=== PATIENT | female | born 1955 | race Caucasian/White ===

== ENCOUNTER 2019-09-21 19:04 | Emergency (ER) | payer OTHER ==
[2019-09-21] MEDS ORDERED: ONDANSETRON 4 MG/2 ML VIAL ONE (19:39)
[2019-09-21] MEDS ORDERED: FENTANYL CITR 100 MCG/2 ML ONE (19:44)
--- NOTE | 2019-09-21 20:20 | RAD REPORT ---
EXAM DESCRIPTION: RAD - Knee Left 3 View - 09/21/2019 7:54 pm CLINICAL HISTORY: PAIN COMPARISON: No comparisons FINDINGS: Comminuted proximal tibia fracture is present. There is a lateral tibial plateau fracture with a primary sagittal fracture plane. The tibial plateau is depressed 1 centimeter and laterally di splaced 1 centimeter. An additional oblique fracture plane extends from the lateral tibial plateau fr acture plane to the medial margin of the tibial metaphysis. There are multiple small fracture fragmen ts along this second main fracture line. No significant impaction, distraction or angulation along th is second fracture plane. Lipoma hemarthrosis is present. Proximal fibula is intact. Distal femur is intact. No patella abnormality.No foreign body in the soft tissues. IMPRESSION: Comminuted proximal tibia fracture as detailed.
--- NOTE | 2019-09-21 20:42 | EDPHYS ---
Physician Documentation [facility] Name: Alberta Johnson Age: 63 yrs Sex: Female : 1955 Arrival Date: 09/21/2019 Time: 19:08 Bed 30 Private MD: ED Physician Atul Shoemaker HPI: 09/21 19:43 This 63 yrs old Female presents to ER via Wheelchair with complaints of Left pm1 Knee Injury. 19:43 The patient presents with pain, that is acute, swelling. The complaints affect the left pm1 knee. Context: resulted from a mis-step, Patient missed the last step of stairs going down and landed on her left knee. No head injury, headache, LOC, neck pain. Patient without any other complaints than left knee pain, the patient is not able to bear weight, the patient is not able to ambulate, Problem is a result from a previous injury: No. Onset: The symptoms/episode began/occurred 20 minutes prior to arrival. Modifying factors: The symptoms are alleviated by nothing. the symptoms are aggravated by movement. Associated signs and symptoms: Pertinent negatives chest pain, shortness of breath. Treatment prior to arrival includes: no previous treatment. Severity of symptoms: in the emergency department the symptoms are unchanged. The patient has not experienced similar symptoms in the past. Patient from out of town. Historical: - Allergies: 19:14 No Known Allergies; aj1 - PMHx: 19:14 Bipolar disorder; aj1 - Immunization history:: Flu vaccine is not up to date. - Coronavirus screen:: The patient has NOT traveled to [place] in the past 14 days. - Social history:: Smoking status: Patient reports the use of cigarette tobacco products, smokes one-half pack cigarettes per day. - Ebola Screening: : Patient denies travel to an Ebola-affected area in the 21 days before illness onset. ROS: 19:43 Constitutional: Negative for fever, chills, and weight loss, Neck: Negative for injury, pm1 pain, and swelling, Cardiovascular: Negative for chest pain, palpitations, and edema, Respiratory: Negative for shortness of breath, cough, wheezing, and pleuritic chest pain, Abdomen/GI: Negative for abdominal pain, nausea, vomiting, diarrhea, and constipation, Back: Negative for injury and pain. 19:43 Skin: Negative for injury, rash, and discoloration, Neuro: Negative for headache, weakness, numbness, tingling, and seizure. 19:43 MS/extremity: Positive for deformity, pain, swelling, of the left knee, Negative for paresthesias, tenderness, tingling. Exam: 19:43 Constitutional: This is a well developed, well nourished patient who is awake, alert, pm1 and in no acute distress. Head/Face: Normocephalic, atraumatic. Neck: Trachea midline, no thyromegaly or masses palpated, and no cervical lymphadenopathy. Supple, full range of motion without nuchal rigidity, or vertebral point tenderness. No Meningismus. Chest/axilla: Normal chest wall appearance and motion. Nontender with no deformity. No lesions are appreciated. Cardiovascular: Regular rate and rhythm with a normal S1 and S2. No gallops, murmurs, or rubs. No pulse deficits. Respiratory: Lungs have equal breath sounds bilaterally, clear to auscultation and percussion. No rales, rhonchi or wheezes noted. No increased work of breathing, no retractions or nasal flaring. Abdomen/GI: Soft, non-tender, with normal bowel sounds. No distension or tympany. No guarding or rebound. No evidence of tenderness throughout. Back: No spinal tenderness. No costovertebral tenderness. Full range of motion. Skin: Warm, dry with normal turgor. Normal color with no rashes, no lesions, and no evidence of cellulitis. 19:43 Musculoskeletal/extremity: Extremities: grossly normal except: noted in the left knee: deformity, swelling, tenderness, There is no evidence of laceration, puncture, Pulses: noted to be 2+ in the right dorsalis pedis artery and left dorsalis pedis artery, the left foot Sensation intact. Compartment Syndrome exam of affected extremity: is normal. no numbness, no tingling, no sensation deficit, no palor, no weak pulses. 19:43 Neuro: Orientation: is normal, Motor: is normal, moves all fours. Vital Signs: 19:14 BP 153 / 80; Pulse 107; Resp 18; Temp 97.4; Pulse Ox 97% on R/A; Weight 67.59 kg (R); aj1 Height 5 ft. 10 in. (177.80 cm); Pain 8/10; 20:42 BP 177 / 96; Pulse 110; Resp 18; Pulse Ox 96% on R/A; mg2 21:31 BP 158 / 90; Pulse 112; Resp 18; Pulse Ox 100% ; Pain 7/10; mg2 19:14 Body Mass Index 21.38 (67.59 kg, 177.80 cm) aj1 Procedures: 20:51 Splinting: Splint applied to left leg using Orthoglass splint, applied by tech. nurse. pm1 Examined by me, post splint application: neurovascular intact, 2+ distal pulses palpable, brisk capillary refill noted, Patient tolerated well. MDM: 19:17 Patient medically screened. pm1 20:22 Physician consultation: Houston Galvez MD was called at 20:02, was contacted at 20:20, pm1 regarding consult, patient's condition, after a discussion of the case, a recommendation for transfer for higher level of care is made, Transfer to trauma center. 20:37 Data reviewed: vital signs. Data interpreted: Pulse oximetry: on room air is 97 %. pm1 Interpretation: normal. 20:37 Counseling: I had a detailed discussion with the patient and/or guardian regarding: the pm1 historical points, exam findings, and any diagnostic results supporting the discharge/admit diagnosis, radiology results, the need to transfer to another facility, for higher level of care. 09/21 20:41 Order name: CBC with Diff pm1 09/21 20:41 Order name: CMP pm1 09/21 20:41 Order name: PT-INR pm1 09/21 21:42 Order name: CBC with Automated Diff; Complete Time: 21:57 EDMS 09/21 21:42 Order name: Protime (+INR); Complete Time: 21:57 EDMS 09/21 21:42 Order name: Comprehensive Metabolic Panel; Complete Time: 21:57 EDMS 09/21 19:18 Order name: Knee Left 3 View XRAY pm1 09/21 21:40 Order name: RAD; Complete Time: 21:57 EDMS 09/21 19:28 Order name: IV Saline Lock; Complete Time: 19:34 pm1 09/21 20:05 Order name: Splint - Posterior Leg; Complete Time: 20:37 pm1 09/21 20:41 Order name: NPO; Complete Time: 20:42 pm1 Administered Medications: 19:43 Drug: fentaNYL (PF) 50 mcg Route: IVP; Site: right forearm; mg2 20:37 Follow up: Response: No adverse reaction; RASS: Alert and Calm (0) mg2 19:43 Drug: Zofran 4 mg Route: IVP; Site: right forearm; mg2 20:37 Follow up: Response: No adverse reaction mg2 20:52 Drug: morphine 4 mg Route: IVP; Site: right forearm; mg2 21:31 Follow up: Response: No adverse reaction; RASS: Alert and Calm (0) mg2 20:53 Drug: NS 0.9% 1000 ml Route: IV; Rate: 100 ml/hr; Site: right forearm; mg2 21:31 Follow up: IV Status: Infusion continued upon transfer mg2 21:31 Drug: morphine 4 mg Route: IVP; Site: right forearm; mg2 22:25 Follow up: Response: No adverse reaction mg2 22:34 Drug: morphine 4 mg Route: IVP; Site: right forearm; mg2 22:34 Follow up: Response: No adverse reaction; given prior to transfer mg2 Disposition: 23:25 Co-signature as Attending Physician, Atul Shoemaker MD I agree with the assessment and kdr plan of care. Disposition: 09/21/19 20:40 Transfer ordered to [facility]. Diagnosis are Comminuted left tibial plateau fracture, Fall (on) (from) unspecified stairs and steps. - Reason for transfer: Higher level of care. - Accepting physician is [facility]. - Condition is Stable. - Problem is new. - Symptoms have improved. Signatures: Dispatcher [employer] EDViki Wright RN RN aj1 Atul Shoemaker MD MD [facility] Tj Yu NP MOTOR ADJUSTER pm1 Jay Mahoney RN RN mg2 Corrections: (The following items were deleted from the chart) 22:54 20:40 09/21/2019 20:40 Transfer ordered to [facility]. Diagnosis is mg2 Comminuted left tibial plateau fracture; Fall (on) (from) unspecified stairs and steps. Reason for transfer: Higher level of care. Accepting physician is [facility]. Condition is Stable. Problem is new. Symptoms have improved. pm1
--- NOTE | 2019-09-21 20:42 | ER ---
Nurse's Notes [facility] Name: Alberta Johnson Age: 63 yrs Sex: Female : 1955 Arrival Date: 09/21/2019 Time: 19:08 Bed 30 Private MD: Diagnosis: Comminuted left tibial plateau fracture;Fall (on) (from) unspecified stairs and steps Presentation: 09/21 19:09 Presenting complaint: Patient states: She missed a step and the stairs and fell down (1 aj1 step) and landed on her left knee. patient reports left knee pain. Transition of care: patient was not received from another setting of care. Onset of symptoms was 1900. Risk Assessment: Do you want to hurt yourself or someone else? Patient reports no desire to harm self or others. Initial Sepsis Screen: Does the patient meet any 2 criteria? HR > 90 bpm. No. Patient's initial sepsis screen is negative. Does the patient have a suspected source of infection? No. Patient's initial sepsis screen is negative. Care prior to arrival: None. 19:09 Method Of Arrival: Wheelchair aj1 19:09 Acuity: MONICA 4 aj1 Triage Assessment: 19:14 General: Appears in no apparent distress. uncomfortable, Behavior is calm, cooperative, aj1 appropriate for age. Pain: Pain currently is 8 out of 10 on a pain scale. Neuro: Level of Consciousness is awake, alert, obeys commands. Cardiovascular: Patient's skin is warm and dry. Respiratory: Airway is patent Respiratory effort is even, unlabored, Respiratory pattern is regular, symmetrical. Musculoskeletal: Range of motion: limited in left knee. Injury Description: Patient fell down one step. Historical: - Allergies: 19:14 No Known Allergies; aj1 - PMHx: 19:14 Bipolar disorder; aj1 - Immunization history:: Flu vaccine is not up to date. - Coronavirus screen:: The patient has NOT traveled to [place] in the past 14 days. - Social history:: Smoking status: Patient reports the use of cigarette tobacco products, smokes one-half pack cigarettes per day. - Ebola Screening: : Patient denies travel to an Ebola-affected area in the 21 days before illness onset. Screenin:39 Abuse screen: Denies threats or abuse. Denies injuries from another. Nutritional mg2 screening: No deficits noted. Tuberculosis screening: No symptoms or risk factors identified. Fall Risk Fall in past 12 months (25 points). IV access (20 points). Gait- Impaired (20 pts.). Assessment: 20:37 General: Appears in no apparent distress. comfortable, Behavior is calm, cooperative. mg2 Pain: Complains of pain in left knee Pain does not radiate. Pain currently is 6 out of 10 on a pain scale. Quality of pain is described as aching. Neuro: Level of Consciousness is awake, alert, obeys commands, Oriented to person, place, time, situation. Cardiovascular: Capillary refill < 3 seconds Patient's skin is warm and dry. Respiratory: Airway is patent Respiratory effort is even, unlabored, Respiratory pattern is regular, symmetrical. GI: No signs and/or symptoms were reported involving the gastrointestinal system. : No signs and/or symptoms were reported regarding the genitourinary system. EENT: No signs and/or symptoms were reported regarding the EENT system. Derm: Skin is intact, is healthy with good turgor, Skin is pink, warm \T\ dry. normal. Musculoskeletal: Circulation, motion, and sensation intact. Capillary refill < 3 seconds, Bony deformity noted of left knee Reports pain in left knee. Injury Description: Deformity sustained to left knee is comminuted fracture of the left knee. 21:32 Reassessment: Patient appears in no apparent distress at this time. Patient and/or mg2 family updated on plan of care and expected duration. Pain level reassessed. Patient is alert, oriented x 3, equal unlabored respirations, skin warm/dry/pink. patient agreed about the transfer to other facility. 21:45 Reassessment: report given to Wendi Chou RN of [facility]. mg2 22:24 Reassessment: report given to Marcella of EMS. patient in good condition, IV intact. mg2 Vital Signs: 19:14 BP 153 / 80; Pulse 107; Resp 18; Temp 97.4; Pulse Ox 97% on R/A; Weight 67.59 kg (R); aj1 Height 5 ft. 10 in. (177.80 cm); Pain 8/10; 20:42 BP 177 / 96; Pulse 110; Resp 18; Pulse Ox 96% on R/A; mg2 21:31 BP 158 / 90; Pulse 112; Resp 18; Pulse Ox 100% ; Pain 7/10; mg2 19:14 Body Mass Index 21.38 (67.59 kg, 177.80 cm) aj1 ED Course: 19:08 Patient arrived in ED. es 19:13 Triage completed. aj1 19:14 Arm band placed on Patient placed in an exam room. aj1 19:17 Tj Yu, JOB COUNSELOR is PHCP. pm1 19:17 Atul Shoemaker MD is Attending Physician. pm1 19:21 Jay Mahoney RN is Primary Nurse. mg2 20:39 Patient has correct armband on for positive identification. Pulse ox on. NIBP on. Door mg2 closed. Warm blanket given. 20:39 No provider procedures requiring assistance completed. Inserted saline lock: 20 gauge mg2 in right forearm, using aseptic technique. Orthoglass splint: Posterior long leg splint applied on left leg. checked by Provider. 22:24 Patient transferred, IV remains in place. mg2 Administered Medications: 19:43 Drug: fentaNYL (PF) 50 mcg Route: IVP; Site: right forearm; mg2 20:37 Follow up: Response: No adverse reaction; RASS: Alert and Calm (0) mg2 19:43 Drug: Zofran 4 mg Route: IVP; Site: right forearm; mg2 20:37 Follow up: Response: No adverse reaction mg2 20:52 Drug: morphine 4 mg Route: IVP; Site: right forearm; mg2 21:31 Follow up: Response: No adverse reaction; RASS: Alert and Calm (0) mg2 20:53 Drug: NS 0.9% 1000 ml Route: IV; Rate: 100 ml/hr; Site: right forearm; mg2 21:31 Follow up: IV Status: Infusion continued upon transfer mg2 21:31 Drug: morphine 4 mg Route: IVP; Site: right forearm; mg2 22:25 Follow up: Response: No adverse reaction mg2 22:34 Drug: morphine 4 mg Route: IVP; Site: right forearm; mg2 22:34 Follow up: Response: No adverse reaction; given prior to transfer mg2 Intake: Outcome: 20:40 ER care complete, transfer ordered by MD. pm1 22:24 Transferred by ground EMS to [facility], Transfer form completed. mg2 22:24 Condition: stable 22:24 Instructed on the need for transfer, Demonstrated understanding of instructions. 22:54 Patient left the ED. mg2 Signatures: Viki Perkins, RN RN aj1 Shelby Scott Patrick, JOB COUNSELOR JOB COUNSELOR pm1 Jay Mahoney RN RN mg2
[2019-09-21] MEDS ORDERED: MORPHINE 4 MG/ML SYR ONE ×3 (20:48→22:32)
[2019-09-21] MEDS ORDERED: NA CHLORIDE 0.9% 1,000 ML ONE (20:48)
[2019-09-21 21:04] LABS: Absolute Lymphocytes (CBC) 1.9 K/uL (0.7-4.9); Basophils % 0.4 % (0-1.3); Hematocrit 39.8 % (36.0-45.0); Lymphocytes % 14.1 % (15.3-44.8); MPV 7.8 fL (7.6-11.3); RBC Red Blood Cell Count 4.08 M/uL (3.86-4.86)
[2019-09-21 21:05] LABS: Protime INR 1.19
[2019-09-21 21:21] LABS: Albumin 3.9 g/dL (3.4-5.0); Bilirubin Total 0.2 mg/dL (0.2-1.0); Protein, Total 7.3 g/dL (6.4-8.2)
[2019-09-21 23:20] VITALS: TEMP 97.4
[2019-09-21 23:23] VITALS: BP 158/90; O2SAT 100
== END 2019-09-21 22:54 | disposition short-term general hospital (02) ==
LOC: ER 19:04
PROC: 2W3RX1Z Immobilization of Left Lower Leg using Splint (ICD-10-PCS; principal; 2019-09-21)
DX: S82.142A Displaced bicondylar fracture of left tibia, initial encounter for closed fracture (principal); W10.9XXA Fall (on) (from) unspecified stairs and steps, initial encounter; Y93.9 Activity, unspecified; Y92.9 Unspecified place or not applicable; F17.210 Nicotine dependence, cigarettes, uncomplicated
CPT/HCPCS: 96361; 85025; 36415; 85610; 80053; 73562; 96375; 96374; 99285; 29515; J3010; J7030; J2405